=== PATIENT | female | born 1940 | race Caucasian/White ===

== ENCOUNTER 2021-09-11 03:13 | Outpatient (CLI) | payer MEDICARE, MEDICAID, SELFPAY ==
[2021-09-11 14:04] LABS: Source Nasal/Nares
[2021-09-11 17:11] LABS: COVID-19 PCR Negative (Negative)
== END 2021-09-11 03:14 | disposition home or self-care (01) ==
LOC: LBO 03:13
PROVIDERS: PCP Family Medicine; Visit Provider Ophthalmology
DX: Z20.822 Contact with and (suspected) exposure to COVID-19 (principal); Z01.818 Encounter for other preprocedural examination
CPT/HCPCS: 87635

== ENCOUNTER 2021-09-14 12:37 | Day surgery (SDC) | payer MEDICARE, MEDICAID, SELFPAY ==
[2021-09-14 13:00] VITALS: BP 168/98; PULSE 92; RESP 18; TEMP 36.4; O2SAT 94
[2021-09-14] MEDS: Tropicam./Phenyleph. (1/2.5%) 5 ML BTL OD ×3 (13:32→13:43)
[2021-09-14 13:35] VITALS: BP 133/95; PULSE 85
--- NOTE | 2021-09-14 14:05 | ANES.PREOP_ITS ---
General Info Date of Service Date Performed: 09/14/21 Height: 5 ft Weight: 43 kg Body Mass Index (BMI): 18.5 Surgical Procedure: Operation Date: 09/14/21 16:40 Proposed Procedures Side Surgeon p Cataract Extraction with IOL Implant Right Maverick Beaulieu MD Meds Allergies and Home Medications Allergies Allergy/AdvReac Type Severity Reaction Status Date / Time procaine [From Novocain] Allergy Severe Other (See Unverified 09/14/21 13:25 Comment) adhesive tape Allergy Intermediate Skin Rash Unverified 09/14/21 13:25 Penicillins Allergy Intermediate Other (See Unverified 09/14/21 13:25 Comment) Home Medication Medication Instructions Recorded acetaminophen [Acetaminophen Extra 500 mg PO QID 09/10/21 Strength] Current Visit Medications: Current Medications Generic Name Dose Route Start Last Admin Trade Name Freq PRN Reason Stop Dose Admin Acetaminophen 1,000 mg 09/14/21 06:00 Acetaminophen 500 Mg Tab PO Q4H PRN PRN Miscellaneous Medication 0 ml 09/14/21 06:00 Prednisolone 1%, Moxifloxacin 0.5%, Nepafenac 0.1% 5ml Btl OD DIRECTED [facility] Miscellaneous Medication 0 ml 09/14/21 06:00 09/14/21 13:43 Tropicam./Phenyleph. (1/2.5%) 5 Ml Btl OD 1 drp DIRECTED SRINIVASA Administration Tetracaine HCl 0 ml 09/14/21 06:00 Tetracaine 0.5% 4 Ml Btl OD DIRECTED [facility] PFSH Medical History Medical History (Updated 09/14/21 @ 13:22 by Shonda Prado) Anemia Atelectasis 04/2020-pt. stated this is incorrect, stated it was more of an aspiration from food she didn't chew all the way. Bilateral cataracts Fall Fracture, femur Hx of fracture of right hip Hypertensive disorder Hypokalemia Hyponatremia Kyphosis Severe- as stated per office note. Not for resuscitation Rhabdomyolysis 04/2020 Vertigo Surgical History Surgical History History of bunionectomy History of esophagogastroduodenoscopy (EGD) History of open reduction and internal fixation (ORIF) procedure Tobacco Smoking/Tobacco Use Status: Former Tobacco Use Alcohol Alcohol Intake: never Substance Use Substance use: Never Substance use type: does not use Vital Signs and Lab Results Vital Signs Most Recent Vital Signs in EMR: Most Recent Vital Signs Temp Pulse Resp BP Pulse Ox 36.4 C L 85 18 133/95 H 94 09/14/21 13:00 09/14/21 13:35 09/14/21 13:00 09/14/21 13:35 09/14/21 13:00 Lab Results Blood Type / Crossmatch: No Data to Display Complete Blood Count: No Data to Display Complete Metabolic Panel: No Data to Display Liver Function Panel: No Data to Display Coagulation Panel: No Data to Display Cardiac Panel: No Data to Display Arterial Blood Gas: No Data to Display Venous Blood Gas: No Data to Display Pancreas Panel: No Data to Display Thyroid Panel: No Data to Display Infectious Disease: Coronavirus (COVID-19)(PCR) Negative (Negative) 09/11/21 11:25 09/11/21 Coronavirus 2019 Source Nasal/Nares 09/11/21 11:25 09/11/21 Blood Cultures: No Data to Display Toxicology Panel: No Data to Display Anesthesia Assessment and Plan Anesthesia History Personal History: No History of Anesthesia Complications Family History: No Family History of Anesthesia Complications Exercise Tolerance Exercise Tolerance: Metabolic Equivalents>4 Pertinent Negatives Pertinent Negatives: No Symptoms of GERD, No Major Cardiovascular Symptoms or Complaints, No Major Pulmonary Symptoms or Complaints and No History of CVA/TIA Cardiac & Pulmonary Exam Cardiac Exam: Normal S1/S2 Heart Sounds Pulmonary Exam: Clear Bilateral Breath Sounds Implantable Cardiac Device Does patient have a Pacemaker or an ICD?: No Airway Exam Known Difficult Airway: No Mallampati Class: 2 Mouth Opening: Normal (> 3cm) Thyromental Distance: Greater than 3 cm Neck Range of Motion: Full ROM Neck Circumference: Normal Teeth Condition: Removable Dentures/Plates Upper and Removable Dentures/Plates Lower ASA Classification ASA Score: ASA 2 Emergency Case?: No NPO Status NPO Status: NPO Clears >2 hours, Solids >8 hours Anesthesia Plan Resuscitation Status: Full Code Anesthesia Technique: MAC Anesthesia Airway Planned: Natural Airway Monitors Used: Standard Monitors
[2021-09-14 14:07] VITALS: BMI 18.5
[2021-09-14] MEDS: Tetracaine 0.5% 4 ML BTL OD (14:16)
[2021-09-14] MEDS: Lidocaine 2% Jelly 6 ML SYR (14:17)
[2021-09-14] MEDS: Povidone-Iodine Ophth 30 ML BTL (14:17)
[2021-09-14] MEDS: Balanced Salt Soln.-PLUS 500 ML BAG (14:25)
[2021-09-14] MEDS: Duovisc Viscoelastic System EACH 1 EACH (14:25)
[2021-09-14] MEDS: Lidocaine 1% Pres-Free 5 ML VIAL (14:26)
--- NOTE | 2021-09-14 14:48 | W.ANESPOSTOP ---
Postoperative Evaluation Date, Time and Location Date Performed: 09/14/21 Time Performed: 14:48 Patient Location: Day Surgery Unit Vital Signs Most Recent Imported Vital Signs: Most Recent Vital Signs Temp Pulse Resp BP Pulse Ox 36.4 C L 85 18 133/95 H 94 09/14/21 13:00 09/14/21 13:35 09/14/21 13:00 09/14/21 13:35 09/14/21 13:00 Most Recent Manually Entered Vital Signs: Adult Blood Pressure: 149/90 Heart Rate: 86 Respirations: 18 Oxygen Saturation (%): 92 Temperature (C): 36.4 C Pain Score (0-10 Scale): 0 Pain Score Most Recent Pain Score: Most Recent Pain Score Pain Level 0 09/14/21 13:35 Assessment Mental Status: Awake (Alert & Oriented to Patient Baseline) Airway and Respiratory Function: Patent airway with normal (patient baseline) respiratory exam Cardiovascular Function: Hemodynamically Stable Hydration Status: Adequately Hydrated Nausea & Vomiting: No Nausea or Vomiting Pain: Pt. Denies Any Pain Peripheral Nerve Block: Patient did not receive a nerve block
--- NOTE | 2021-09-14 14:49 | ROE_ITS ---
Date of service: 09/14/21 Time of Service: 14:50 Operative Note Operative Note DATE OF PROCEDURE: 09/14/21 PRE-OP DIAGNOSIS: Nuclear/cortical cataract, right eye POST-OP DIAGNOSIS: same PROCEDURE: Cataract extraction using phacoemulsification with intraocular lens implant, right eye SURGEON: Maverick Beaulieu ANESTHESIA TYPE: Local By Surgeon and MAC Refer to Anesthesia Record ESTIMATED BLOOD LOSS: 0 PATHOLOGY: none sent COMPLICATIONS: None Patient was transported to: same day Patient's condition: stable Implants: Tio [employer] Tio/JOSE Tecnis [id number] Indications: Progressive visual loss due to cataract, right eye Procedure Description: CATARACT SURGERY OPERATIVE REPORT PREOPERATIVE DIAGNOSIS: 1. Nuclear/cortical cataract, right eye POSTOPERATIVE DIAGNOSIS: Same OPERATION: 1. Cataract extraction using phacoemulsification with posterior chamber intraocular lens implant, right eye. IOL: IOL [employer] Supervisor/Model: Tio & Tio / JOSE Tecnis [id number] IOL Power: + 29.0 diopters IOL Serial Number: [id number] Optic Diameter: 6.0mm Haptic/Overall Diameter: 13.0mm PHACO INFO: Arnol Aprimourion Vision System with OZil and Active Fluidics Cumulative Dispersed Energy (CDE): 9.45 seconds SURGEON: Maverick Beaulieu MD, [place] ANESTHESIA: Monitored Anesthesia Care (MAC), with local sub-tenon's anesthetic infiltration COMPLICATIONS: None SPECIMENS: None INDICATIONS FOR PROCEDURE: Patient is a 80-year-old lady with history of diminished visual acuity in her right eye. She is noted to have a significant nuclear and cortical cataract in the right eye. 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 The option of cataract surgery in the right eye was offered to the patient and she wished to proceed. She desires to remain myopic pos toperatively so she can read comfortably without glasses. Postoperative refractive target is approximately -2.50 PROCEDURE: The correct surgical eye was identified and marked as the right eye and the pupil was dilated in the preoperative area using mydriatics and cycloplegics. The dilated pupil size was 6.5 mm. She elected to proceed without oral sedation.. The patient was brought to the operating room where cardiopulmonary monitoring was instituted and surgical time-out was performed, confirming the correct operative eye and IOL power. Patient positioning was extremely challenging due to severe kyphosis. Topical anesthesia was administered and ophthalmic povidone-iodine 5% was instilled into the conjunctival fornices. Lidocaine gel was applied to the cornea and the elroy-ocular area was prepped with Betadine 10% solution and draped in the usual sterile fashion for intraocular surgery, including an aperture drape. A Tegaderm transparent film dressing was cut in half and used to cover the lashes and lid margins. Care was taken to sequester the lashes and lid margins under the Tegaderm dressing. A lid speculum was placed between the lids of the operative eye and the Miguel Angel-Gely operating microscope was maneuvered into position. Eleazar scissors were then used to make a conjunctival buttonhole approximately 6mm posterior to the limbus in the inferonasal quadrant. Blunt dissection was carried out to expose bare sclera, and a blunt-tipped sub-tenon?s anesthesia cannula was introduced and passed posteriorly along the globe where non- preserved plain lidocaine was injected into posterior sub-Tenon?s space. A sideport knife was used to make a paracentesis port inferotemporally. Intraocular phenylephrine/lidocaine was injected into the anterior chamber. The anterior chamber was filled with viscoelastic. A 2.4mm keratome knife was used to create a half-thickness groove at the limbus and then to construct a three- plane near-clear corneal tunnel extending 2.0mm into clear cornea superiortemporally. A flap was raised on the anterior capsule and capsulorhexis forceps were used to complete a continuous curvilinear capsulorhexis of 5.0 mm. Capsulorhexis was challenging due to continuous patient movement. Balanced salt solution was then used to perform cortical cleaving hydrodissection and nuclear hydrodelineation until the lens could be freely rotated within the capsular bag. The lens nucleus was then disassembled and removed within the capsular bag and iris plane using phacoemulsification. Nuclear removal was challenging due to constant patient movement. Residual cortical material was removed using the I/A handpiece. The posterior capsule was carefully polished to remove as much residual lens epithelial cells as safely possible. The capsular bag was then inflated and the anterior chamber deepened with viscoelastic. The lens implant described above was inserted into the capsular bag using the JOSE Habematolel Injector. A Kuglen hook was used to dial the IOL into position. Residual viscoelastic was then removed first from posterior to the IOL, then from the anterior chamber using the I/A handpiece. The lens implant was noted to center nicely within the capsular bag. The incisions were stromally hydrated, and the anterior chamber was reformed using BSS. Then 0.5cc of moxifloxacin 1.0mg/ml were injected into the capsular bag and anterior chamber. The incisions were checked with a Weck spear and found to be secure. Several drops of ophthalmic povidone-iodine 5% were then applied to the eye followed by two drops of Imprimis combination prednisolone/moxifloxacin/nepafenac solution. The drapes were removed and a clear plastic protective eye shield was placed over the eye. The patient was then returned to Same Day Surgery in stable condition.
--- NOTE | 2021-09-14 14:49 | W.PM.DSUDISC ---
Discharge Plan Disposition Patient Disposition: HOME Condition: Good Discharge Details Attending Provider: Maverick Beaulieu Primary Care Provider: Ronaldo Qiu Home Meds and New Rx's Prescriptions: No Action acetaminophen [Acetaminophen Extra Strength] 500 mg Tablet 500 mg PO QID RF: 0 Discharge Instructions Stand Alone Forms: Post-op Topical Cataract, Lenora Rush ([facility]) Discharge Orders Discharge Orders: Discharge Order (Routine); Ordered 09/14/21 Ordered By: Maverick Beaulieu DS: Diagnosis Discharge Diagnosis (1) Nuclear sclerotic cataract of right eye: Status: Resolved (2) Cortical cataract of left eye: Status: Resolved
[2021-09-14 14:50] VITALS: BP 149/90; PULSE 86; RESP 18; TEMPC 36.4; O2SAT 92
[2021-09-14 14:56] VITALS: BP 149/90; PULSE 87; RESP 16; TEMP 36.4; O2SAT 92
--- NOTE | 2021-09-14 14:56 | W.ANESPOSTOP ---
Postoperative Evaluation Date, Time and Location Date Performed: 09/14/21 Time Performed: 14:56 Patient Location: Day Surgery Unit Vital Signs Most Recent Imported Vital Signs: Most Recent Vital Signs Temp Pulse Resp BP Pulse Ox 36.4 C L 85 18 133/95 H 94 09/14/21 13:00 09/14/21 13:35 09/14/21 13:00 09/14/21 13:35 09/14/21 13:00 Most Recent Vital Signs Temp Pulse Resp BP Pulse Ox 36.4 C L 85 18 133/95 H 94 09/14/21 13:00 09/14/21 13:35 09/14/21 13:00 09/14/21 13:35 09/14/21 13:00 Most Recent Manually Entered Vital Signs: Adult Blood Pressure: 149/90 Heart Rate: 82 Respirations: 16 Oxygen Saturation (%): 92 Temperature (C): 36.4 C Pain Score (0-10 Scale): 0 Pain Score Most Recent Pain Score: Most Recent Pain Score Pain Level 0 09/14/21 13:35 Assessment Mental Status: Awake (Alert & Oriented to Patient Baseline) Airway and Respiratory Function: Patent airway with normal (patient baseline) respiratory exam Cardiovascular Function: Hemodynamically Stable Hydration Status: Adequately Hydrated Nausea & Vomiting: No Nausea or Vomiting Pain: Pt. Denies Any Pain Peripheral Nerve Block: Patient did not receive a nerve block
[2021-09-14 14:58] VITALS: BP 149/90; PULSE 82; RESP 16; TEMPC 36.4; O2SAT 92
== END 2021-09-14 15:22 | disposition home or self-care (01) ==
PROVIDERS: PCP Family Medicine; Visit Provider Ophthalmology
PROC: (CPT 66984; principal; 2021-09-14 16:30)
DX: H25.11 Age-related nuclear cataract, right eye (principal)
CPT/HCPCS: 66984; V2632